=== PATIENT | male | born 1955 | race Caucasian/White ===

== ENCOUNTER 2019-11-28 10:27 | Outpatient (CLI) | payer MEDICARE, SELFPAY ==
--- NOTE | ~2019-11-28 | XR_ITS ---
EXAMINATION: XR hip RT min 2V DATE: 11/28/2019 10:47 INDICATION: Right hip pain TECHNIQUE: Two views of the right hip were obtained. COMPARISON: None. FINDINGS: Bone alignment is normal. There is no fracture. Mild osteoarthritis is present. The soft ti ssues are unremarkable. IMPRESSION: 1. No acute osseous abnormality. Reviewed, dictated and finalized at location A.
--- NOTE | ~2019-11-28 | XR_ITS ---
EXAMINATION: XR wrist RT 2V DATE: 11/28/2019 10:47 INDICATION: Nontraumatic right wrist pain TECHNIQUE: Posteroanterior and lateral views of the right wrist were obtained. COMPARISON: none FINDINGS: Alignment is normal. No fracture. Mild osteoarthritis at the distal radioulnar, triscaphe, first carp ometacarpal and first, second and fifth metacarpophalangeal joints. Soft tissues are unremarkable. IMPRESSION: 1. Mild polyarticular osteoarthritis. Reviewed, dictated and finalized at location A.
== END 2019-11-28 10:28 | disposition home or self-care (01) ==
LOC: ANHIMG 10:32
PROVIDERS: PCP Family Medicine; Visit Provider Family Medicine
DX: M25.559 Pain in unspecified hip (principal); M19.031 Primary osteoarthritis, right wrist
CPT/HCPCS: 73100; 73502

== ENCOUNTER → 2019-12-07 12:23 | Outpatient (CLI) | payer MEDICARE, SELFPAY ==
--- NOTE | ~2019-12-07 | MR_ITS ---
EXAMINATION: MR hip RT wo con DATE: 12/07/2019 13:08 INDICATION: Unspecified right hip pain TECHNIQUE: Magnetic resonance imaging (MRI) of the right hip was performed without intravenous contr ast. Sequences included full-field axial PD-weighted FS FSE and T1-weighted FSE, coronal of the pelvi s with PD-weighted FS FSE, small field of view of the right hip with axial PD-weighted FS FSE, sagit derek PD-weighted FS FSE and coronal PD weighted FS FSE. Additional radial T1-weighted FGR oriented ort hogonal to the acetabular rim were obtained for evaluation of the labrum. COMPARISON: Right hip radiographs dated 11/28/2019 FINDINGS: Bones/labrum/cartilage: Alignment is normal. No fracture, avascular necrosis or pathologic marrow replacing process. Tear of the anterior to superolateral right acetabular labrum. Mild right hip osteoarthritis with nonuniform joint space narrowing with partial thickness cartilage loss most prominent anterosuperiorly and post eriorly. There is subarticular edema along the margin of the posterior articular surface of the femor al head. Fluid: Symmetric physiologic amount of fluid within both hip joints. No bursitis or other abnormal fluid col lections. Soft tissues: Normal and symmetric muscle bulk and signal in the pelvis and visualized proximal thighs. Mild tendin opathy without discrete tear at the posterior aspect of the bilateral gluteus medius medius tendons. The iliopsoas and proximal hamstring tendons are normal. Prostatomegaly measuring 4.9 x 3.5 x 4.5 cm. Limited evaluation of visceral organs of the pelvis is otherwise unremarkable. No pathologically en larged pelvic/inguinal lymphadenopathy. IMPRESSION: 1. 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 Reviewed, dictated and finalized at location A. IMPRESSION: 1. 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
== END ==
PROVIDERS: PCP Family Medicine; Visit Provider Family Medicine
DX: M25.559 Pain in unspecified hip (principal); M16.11 Unilateral primary osteoarthritis, right hip; S73.191A Other sprain of right hip, initial encounter; M94.251 Chondromalacia, right hip
CPT/HCPCS: 73721

== ENCOUNTER 2019-12-14 10:53 | Outpatient (CLI) | payer MEDICARE, SELFPAY ==
[2019-12-14 11:16] LABS: Basophils Percent Auto 0.9 % (0.2-1.2); Eosinophils Percent Auto 0.2 % (0-4.4); Hematocrit 38.5 % (42.0-52.0); Hemoglobin 13.5 g/dL (14.0-18.0); Immature Granulocyte Absolute 0.01 K/mm3 (0.00-0.031); Immature Granulocyte Percent A 0.2 % (0-0.5); Lymphocytes Absolute Auto 0.78 K/mm3 (0.9-3.2); Lymphocytes Percent Auto 17.4 % (18.3-44.2); Mean Corpuscular HGB Conc 35.1 g/dl (32-36); Mean Corpuscular Hemoglobin 31.4 pg (26-34); Mean Corpuscular Volume 89.5 fl (80-100); Mean Platelet Volume 8.5 fl (7.4-10.4); Monocytes Absolute Auto 0.3 K/mm3 (0.1-0.6); Monocytes Percent Auto 6.2 % (2.6-8.5); Neutrophils Absolute Auto 3.4 K/mm3 (1.3-6.7); Neutrophils Percent Auto 75.1 % (45.5-73.1); Platelet Count Result 113 k/mm3 (150-375); Red Cell Distribution Width 13.2 % (11.5-14.5); White Blood Count 4.5 K/mm3 (4.5-10.0)
[2019-12-14 11:44] LABS: Hemoglobin A1C 6.1 % (<5.7)
[2019-12-14 16:41] LABS: Alanine Aminotransferase 20 U/L (4-50); Albumin Level 4.5 g/dL (3.5-5.1); Alkaline Phosphatase 69 U/L (38-126); Aspartate Amino Transferase 22 U/L (17-59); Bilirubin,Total 0.5 mg/dL (0.2-1.3); Blood Urea Nitrogen 17 mg/dL (9-20); Calcium 9.4 mg/dL (8.4-10.2); Carbon Dioxide 27 mmol/L (22-30); Chloride 101 mmol/L (98-107); Cholesterol 103 mg/dL (0-200); Estimated Glomerular Filt Rate > 60; Glucose 270 mg/dL (75-110); HDL Direct 27 mg/dL; Potassium 4.5 mmol/L (3.4-5.0); Sodium 138 mmol/L (137-145); Triglycerides 118 mg/dL (<150)
[2019-12-14 16:42] LABS: Lactate Dehydrogenase 392 U/L (313-618)
[2019-12-14 16:52] LABS: LDL Cholesterol Direct 64 mg/dL
[2019-12-14 16:54] LABS: Free T4 Free Thyroxine 0.98 ng/mL (0.78-2.19)
[2019-12-14 17:09] LABS: Prostate Specific Antigen 3.1 ng/mL (< OR = 4.0)
[2019-12-14 17:47] LABS: Folic Acid 9.3 ng/mL (2.76->20); Vitamin B12 > 1000.0 pg/mL (239-931)
== END 2019-12-14 10:54 | disposition home or self-care (01) ==
PROVIDERS: PCP Family Medicine; Visit Provider Internal Medicine Hematology & Oncology
DX: E11.9 Type 2 diabetes mellitus without complications (principal); G47.33 Obstructive sleep apnea (adult) (pediatric); I10 Essential (primary) hypertension; N20.0 Calculus of kidney; N40.0 Benign prostatic hyperplasia without lower urinary tract symptoms; Z79.899 Other long term (current) drug therapy; Z99.89 Dependence on other enabling machines and devices; D69.59 Other secondary thrombocytopenia; Z12.5 Encounter for screening for malignant neoplasm of prostate
CPT/HCPCS: 36415; 80053; 80061; 82607; 82746; 83036; 83615; 84153; 84439; 84443; 85025; G0103

== ENCOUNTER 2020-08-06 08:44 | Outpatient (CLI) | payer MEDICARE, SELFPAY | END 2020-08-06 08:45 | disposition home or self-care (01) | LOC: ANHCOVIDVC 08:44 | PROVIDERS: PCP Family Medicine | DX: Z23 Encounter for immunization (principal) | CPT/HCPCS: 0001A; 91300 ==

== ENCOUNTER 2020-08-27 08:45 | Outpatient (CLI) | payer MEDICARE, SELFPAY | END 2020-08-27 08:46 | disposition home or self-care (01) | LOC: ANHCOVIDVC 08:45 | PROVIDERS: PCP Family Medicine | DX: Z23 Encounter for immunization (principal) | CPT/HCPCS: 0002A; 91300 ==

== ENCOUNTER 2020-09-18 07:33 | Emergency (ER) | payer MEDICARE, SELFPAY ==
[2020-09-18] VITALS (27 sets, daily range): BP systolic 124–162; BP diastolic 75–96; PULSE 71–81; RESP 10–22; TEMP 36.4; O2SAT 91–100
--- NOTE | ~2020-09-18 | CT_ITS ---
EXAMINATION: CT brain wo con EXAM DATE: 09/18/2020 08:58 INDICATION: Headache and dizziness. TECHNIQUE: Spiral CT of the head was performed without contrast. Axial, coronal and sagittal images were reviewed. The dose-length product (DLP) for this examination was 605.33 mGy-cm. The exposure w as tailored according to patient size, and iterative reconstruction (ASIR) was used as additional dos e reduction technique. There is no prior study for comparison. FINDINGS: There is no acute intraparenchymal hemorrhage. No evidence of intraparenchymal brain mass lesion. No evidence of acute infarction. There is no mass effect or midline shift. The ventricles are normal in size. There are no extra-axial collections. There are no acute calvarial fractures. T he orbits are unremarkable. Soft tissue is unremarkable. The visualized sinuses and mastoid air vicenta ls are well aerated. IMPRESSION: 1. No acute intracranial findings. Reviewed, dictated and finalized at location A.
--- NOTE | ~2020-09-18 | XR_ITS ---
EXAMINATION: XR chest 2V EXAM DATE: 09/18/2020 08:14 INDICATION: Dizziness and chest pain, symptoms 1 day. TECHNIQUE: Frontal and lateral projections of the chest obtained and reviewed. Comparison is made to prior examination from 05/03/2013. FINDINGS: The lungs are clear. There are no pleural effusions. The cardiomediastinal silhouette is within normal limits. There is no pneumothorax suspected. The bones and soft tissues are unremarkab le. IMPRESSION: No acute cardiopulmonary findings. Reviewed, dictated and finalized at location A.
--- NOTE | 2020-09-18 07:42 | ECG_ITS ---
Measurements Intervals [place] Rate: 80 P: 60 ID: [id number] QRS: 19 QRSD: 88 T: 80 QT: 378 QTc: 437 Interpretive Statements SINUS RHYTHM INCOMPLETE RIGHT BUNDLE BRANCH BLOCK BORDERLINE ST ABNORMALITY- ANTEROLAT/HIGH LAT LEADS BASELINE ARTIFACT- III, AVR, AVL, AVF, V1 BORDERLINE ECG Electronically Signed On 09-18-2020 9:10:45 CDT by Gary Lemos D.O.
[2020-09-18 07:53] LABS: Basophils Percent Auto 0.9 % (0.2-1.2); Eosinophils Absolute Auto 0.1 K/mm3 (0-0.3); Eosinophils Percent Auto 1.4 % (0-4.4); Hematocrit 40.4 % (42.0-52.0); Hemoglobin 14.5 g/dL (14.0-18.0); Immature Granulocyte Absolute 0.01 K/mm3 (0.00-0.031); Immature Granulocyte Percent A 0.2 % (0-0.5); Lymphocytes Absolute Auto 0.98 K/mm3 (0.9-3.2); Lymphocytes Percent Auto 22.9 % (18.3-44.2); Mean Corpuscular HGB Conc 35.9 g/dl (32-36); Mean Corpuscular Hemoglobin 32.4 pg (26-34); Mean Corpuscular Volume 90.2 fl (80-100); Mean Platelet Volume 8.7 fl (7.4-10.4); Monocytes Absolute Auto 0.4 K/mm3 (0.1-0.6); Monocytes Percent Auto 8.6 % (2.6-8.5); Neutrophils Absolute Auto 2.8 K/mm3 (1.3-6.7); Platelet Count Result 117 k/mm3 (150-375); Red Blood Count 4.48 M/mm3 (4.6-6.20); Red Cell Distribution Width 13.1 % (11.5-14.5); White Blood Count 4.3 K/mm3 (4.5-10.0)
[2020-09-18 08:03] LABS: INR 0.9; Prothrombin Time 12.3 Seconds (11.1-14.7)
[2020-09-18 08:04] LABS: Partial Thromboplastin Time 26.4 SECONDS (22.3-36.8)
[2020-09-18 08:05] LABS: Anion Gap 10 mmol/L (8-16); Blood Urea Nitrogen 17 mg/dL (9-20); Calcium 9.2 mg/dL (8.4-10.2); Carbon Dioxide 28 mmol/L (22-30); Chloride 103 mmol/L (98-107); Estimated CRCL calculation 82 ml/min; Estimated Glomerular Filt Rate > 60; Glucose 201 mg/dL (75-110); Potassium 3.9 mmol/L (3.4-5.0); Sodium 141 mmol/L (137-145)
[2020-09-18 08:17] LABS: Troponin I < 0.012 ng/mL (0.000-0.034)
--- NOTE | 2020-09-18 08:38 | ED.DIZZY ---
HPI - Dizziness General Chief Complaint: Dizziness Stated Complaint: Dizzy, CP Time Seen by Provider: 09/18/20 07:51 Source: patient and family Mode of arrival: ambulatory Limitations: no limitations History of Present Illness HPI Narrative: Patient 65 years old white male with come this morning with diaphoresis, dizziness, and retrosternal chest pain. Patient reported that he does have retrosternal chest pain almost daily for long time. Today is not different than before. The dizziness is new. Patient denies any aggravating or relieving factors, denies any nausea, vomiting, shortness of breath or any new stress lately. Patient also denies any fever, chills, coughing or respiratory symptoms. Patient used to be on vilazodone which is stopped by the patient few months ago. Currently patient dizziness is 4 out of 10 compared to 10 out of 10 after waking up this morning. Patient denying having similar symptoms. He reports had history of panic attacks. Patient had history of diabetes, hyperlipidemia, sleep apnea on CPAP, no smoking, no drinking or using marijuana. Retired immediately after the beginning of the COVID-19 pandemic Related Data Allergies Allergy/AdvReac Type Severity Reaction Status Date / Time No Known Allergies Allergy Verified 09/18/20 08:06 Review of Systems Review of Systems: Narrative: CONSTITUTIONAL: Denies fever, chills, or sweats. EYES: Denies visual changes, redness, or discharge. ENT: Denies rhinorrhea, congestion, sore throat, or otalgia. CARDIOVASCULAR: Denies chest pain, palpitations, or edema. RESPIRATORY: Denies cough or dyspnea. GASTROINTESTINAL: Denies abdominal pain, nausea, vomiting, or diarrhea. GENITOURINARY: Denies dysuria or hematuria. SKIN: Denies rash or itching. MUSCULOSKELETAL: Denies back pain, joint pain, or myalgia. NEUROLOGIC: Denies headache, numbness, or weakness. PSYCHIATRIC: Denies anxiety or depression. [facility] Past Medical History Medical History Obstructive sleep apnea (adult) (pediatric) Primary osteoarthritis of right hip Surgical History Surgical History Hx of cholecystectomy Family History Family History Grandparent Family history of cardiovascular disease Cerebrovascular accident Father Family history of chronic obstructive pulmonary disease Family history of lung cancer Colon polyp Family history of type 2 diabetes mellitus Mother Family history of type 2 diabetes mellitus, Onset Age: 83 Social History Social History Smoking status: Never smoker Alcohol intake: current Gender identity (if verbalized by the patient): Male Exam Narrative: Exam Narrative: General appearance: Well-developed, well-nourished, at the bedside Skin: Normal color Head: Normocephalic, nontraumatic Eyes: Clear conjunctiva ENT: Oropharynx normal, ears normal, nose normal Neck: Supple, nontender Chest and respiratory: Airway patent, no respiratory distress, no accessory muscle use Heart: Regular rate/rhythm Abdomen: Soft, nontender, no organomegaly, quiet bowel sounds Vascular: Normal peripheral pulses, normal capillary refill. Musculoskeletal: Normal range of motion, nontender back Neurologic: Alert and oriented ?3, N[employer]EL[employer] is normal as tested, no gross motor deficit Course Course Emergency Course: Stable Reevaluation(s) Reevaluation #1: Patient is able to get out of bed and walk around in the emergency room without any complaint. Patient feeling okay to go home. Date: 09/18
[2020-09-18 11:11] LABS: D Dimer 0.27 ug/mL (<0.48)
[2020-09-18 11:22] LABS: Troponin I < 0.012 ng/mL (0.000-0.034)
== END 2020-09-18 11:12 | disposition home or self-care (01) ==
PROVIDERS: Emergency Provider Emergency Medicine; PCP Family Medicine
DX: R42 Dizziness and giddiness (principal); R07.9 Chest pain, unspecified; G89.29 Other chronic pain; M19.90 Unspecified osteoarthritis, unspecified site; G47.30 Sleep apnea, unspecified
CPT/HCPCS: 36415; 70450; 71046; 80048; 84484; 85025; 85380; 85610; 85730; 93005; 99284

== ENCOUNTER 2020-12-13 13:47 | Outpatient (CLI) | payer MEDICARE, SELFPAY ==
[2020-12-13 14:04] LABS: Basophils Percent Auto 0.7 % (0.2-1.2); Eosinophils Percent Auto 0.9 % (0-4.4); Hematocrit 38.4 % (42.0-52.0); Hemoglobin 13.6 g/dL (14.0-18.0); Immature Granulocyte Absolute 0.01 K/mm3 (0.00-0.031); Immature Granulocyte Percent A 0.2 % (0-0.5); Lymphocytes Absolute Auto 1.05 K/mm3 (0.9-3.2); Lymphocytes Percent Auto 23.8 % (18.3-44.2); Mean Corpuscular HGB Conc 35.4 g/dl (32-36); Mean Corpuscular Hemoglobin 32.1 pg (26-34); Mean Corpuscular Volume 90.6 fl (80-100); Mean Platelet Volume 8.2 fl (7.4-10.4); Monocytes Absolute Auto 0.3 K/mm3 (0.1-0.6); Monocytes Percent Auto 7.5 % (2.6-8.5); Neutrophils Percent Auto 66.9 % (45.5-73.1); Platelet Count Result 111 k/mm3 (150-375); Red Blood Count 4.24 M/mm3 (4.6-6.20); Red Cell Distribution Width 13.6 % (11.5-14.5); White Blood Count 4.4 K/mm3 (4.5-10.0)
[2020-12-13 14:09] LABS: Blood Urea Nitrogen 20 mg/dL (8-26); Carbon Dioxide 28 mmol/L (22-30); Chloride 101 mmol/L (98-109); Estimated Glomerular Filt Rate > 60; Glucose 197 mg/dL (70-105); Potassium 3.7 mmol/L (3.5-4.9); Sodium 143 mmol/L (138-146)
[2020-12-13 16:34] LABS: Alanine Aminotransferase 24 U/L (4-50); Albumin Level 4.4 g/dL (3.5-5.1); Alkaline Phosphatase 58 U/L (38-126); Anion Gap 10 mmol/L (8-16); Aspartate Amino Transferase 24 U/L (17-59); Bilirubin,Total 1.1 mg/dL (0.2-1.3); Blood Urea Nitrogen 20 mg/dL (9-20); Calcium 9.6 mg/dL (8.4-10.2); Carbon Dioxide 28 mmol/L (22-30); Chloride 102 mmol/L (98-107); Estimated Glomerular Filt Rate > 60; Glucose 190 mg/dL (75-110); Potassium 3.8 mmol/L (3.4-5.0); Sodium 140 mmol/L (137-145)
== END 2020-12-13 13:48 | disposition home or self-care (01) ==
LOC: ANHLAB 13:49
PROVIDERS: PCP Family Medicine; Visit Provider Internal Medicine Hematology & Oncology
DX: R16.1 Splenomegaly, not elsewhere classified (principal)
CPT/HCPCS: 36415; 80048; 80053; 85025

== ENCOUNTER 2021-10-03 07:01 | Outpatient (CLI) | payer MEDICARE, SELFPAY ==
--- NOTE | ~2021-10-03 | CT_ITS ---
EXAMINATION: CT abdomen pelvis w con DATE: 10/03/2021 07:45 INDICATION: Left lower quadrant abdominal pain. Constipation. TECHNIQUE: Computed tomography (CT) of the abdomen and pelvis was performed with 100 CC Omnipaque 350 intravenous contrast. Automated exposure control and iterative reconstruction technique were employe d. Exam dose: 396.66 mGy-cm total exam DLP. COMPARISON: 12/10/2017 complete abdominal ultrasound FINDINGS: The lung bases are clear of infiltrate or consolidation. Normal heart size. No pericardial or pleural effusion. Status post cholecystectomy. No bile duct dilatation. No hepatic space-occupying mass lesion. Splenom egaly. No splenic mass lesion. No pancreatic mass lesion, calcification or ductal dilatation. Normal morphology of the adrenal glands. 1.7 cm right renal cyst. There are numerous left renal cysts, measuring up to 3.3 cm. There are numerous nonobstructing left renal calculi, measuring up to 7 mm. No ureteral calculus or h ydroureteronephrosis is noted on either side. There is prominent prostate enlargement. The urinary bladder is unremarkable. Normal caliber and minimal atherosclerotic calcification of the abdominal aorta. No intraperitoneal o r retroperitoneal or pelvic mass lesion or adenopathy or ascites. There is a prominent amount fecal material throughout the colon consistent with history of constipati on. No bowel obstruction, bowel wall thickening, pneumatosis or intraperitoneal free air. Normal appe ndix. No suspicious osteolytic or osteoblastic lesions. IMPRESSION: Splenomegaly Prominent amount of fecal material in the colon consistent with constipation Multiple bilateral renal cysts Multiple nonobstructing left renal calculi Reviewed, dictated and finalized at Location A. Reviewed, dictated and finalized at location A.
[2021-10-04 10:15] LABS: Estimated Glomerular Filt Rate > 60
== END 2021-10-03 07:02 | disposition home or self-care (01) ==
PROVIDERS: PCP Family Medicine; Visit Provider Physician Assistant
DX: N28.1 Cyst of kidney, acquired (principal); N20.0 Calculus of kidney; R16.1 Splenomegaly, not elsewhere classified
CPT/HCPCS: 74177; Q9967

== ENCOUNTER 2021-12-16 13:20 | Outpatient (CLI) | payer MEDICARE, SELFPAY ==
[2021-12-16 13:43] LABS: Basophils Percent Auto 0.6 % (0.2-1.2); Eosinophils Percent Auto 0.2 % (0-4.4); Hematocrit 37.6 % (42.0-52.0); Hemoglobin 13.1 g/dL (14.0-18.0); Immature Granulocyte Absolute 0.01 K/mm3 (0.00-0.031); Immature Granulocyte Percent A 0.2 % (0-0.5); Lymphocytes Absolute Auto 1.06 K/mm3 (0.9-3.2); Lymphocytes Percent Auto 20.6 % (18.3-44.2); Mean Corpuscular HGB Conc 34.8 g/dl (32-36); Mean Corpuscular Hemoglobin 32.4 pg (26-34); Mean Corpuscular Volume 93.1 fl (80-100); Mean Platelet Volume 8.8 fl (7.4-10.4); Monocytes Absolute Auto 0.4 K/mm3 (0.1-0.6); Monocytes Percent Auto 7.6 % (2.6-8.5); Neutrophils Absolute Auto 3.7 K/mm3 (1.3-6.7); Neutrophils Percent Auto 70.8 % (45.5-73.1); Platelet Count Result 118 k/mm3 (150-375); Red Blood Count 4.04 M/mm3 (4.6-6.20); Red Cell Distribution Width 13.1 % (11.5-14.5); White Blood Count 5.2 K/mm3 (4.5-10.0)
[2021-12-16 13:47] LABS: Blood Urea Nitrogen 17 mg/dL (8-26); Carbon Dioxide 25 mmol/L (22-30); Chloride 103 mmol/L (98-109); Estimated Glomerular Filt Rate > 60; Glucose 162 mg/dL (70-105); Ionized Calcium (POC) 1.17 mmol/L (1.11-1.31); Sodium 140 mmol/L (138-146)
[2021-12-16 19:28] LABS: Alanine Aminotransferase 24 U/L (6-50); Albumin Level 4.5 g/dL (3.5-5.1); Alkaline Phosphatase 57 U/L (38-126); Anion Gap 9 mmol/L (8-16); Aspartate Amino Transferase 25 U/L (17-59); Bilirubin,Total 0.8 mg/dL (0.2-1.3); Blood Urea Nitrogen 19 mg/dL (9-20); Calcium 9.5 mg/dL (8.4-10.2); Carbon Dioxide 24 mmol/L (22-30); Chloride 105 mmol/L (98-107); Estimated Glomerular Filt Rate > 60; Glucose 157 mg/dL (65-110); Potassium 4.1 mmol/L (3.4-5.0); Sodium 138 mmol/L (137-145)
== END 2021-12-16 13:21 | disposition home or self-care (01) ==
LOC: ANHLAB 13:21
PROVIDERS: PCP Family Medicine; Visit Provider Internal Medicine Hematology & Oncology
DX: R16.1 Splenomegaly, not elsewhere classified (principal)
CPT/HCPCS: 36415; 80047; 80053; 85025

== ENCOUNTER 2022-04-24 12:18 | Outpatient (CLI) | payer MEDICARE, SELFPAY ==
--- NOTE | ~2022-04-24 | CT_ITS ---
EXAMINATION: CT abdomen pelvis w con DATE: 04/24/2022 12:46 INDICATION: Abdominal pain. TECHNIQUE: Computed tomography (CT) of the abdomen and pelvis was performed with 100 mL Omnipaque 350 intravenous contrast. Automated exposure control and iterative reconstruction technique were employe d. The dose-length product was 364.89 mGy-cm. COMPARISON: CT abdomen and pelvis 10/03/2021 FINDINGS: The visualized portions of the lung bases demonstrate mild atelectasis. No pleural effusion . The heart size is normal. No pericardial effusion. There is a small sliding hiatal hernia. The live r is normal. There are changes of cholecystectomy. Calcifications in the spleen are consistent with o ld granulomatous disease. There is mild splenomegaly. The pancreas and adrenal glands are normal. The re are cysts in the kidneys measuring up to 3.3 cm on the left. There is a cluster of at least 6 ston es in left kidney measuring up to 8 mm. The prostate is moderately enlarged. There are no dilated loo ps of bowel. The appendix is normal. There are no pathologically enlarged lymph nodes. There is no fr ee intraperitoneal fluid. There is mild thoracolumbar spondylosis. IMPRESSION: 1. Nonobstructing left kidney stones. 2. Chronic mild splenomegaly. 3. Small sliding hiatal hernia. Reviewed, dictated and finalized at location A. ENGER RELATIONS REPRESENTATIVE
[2022-04-24 12:40] LABS: Estimated Glomerular Filt Rate > 60
== END 2022-04-24 12:19 | disposition home or self-care (01) ==
PROVIDERS: PCP Family Medicine; Visit Provider Physician Assistant
DX: R10.9 Unspecified abdominal pain (principal); K44.9 Diaphragmatic hernia without obstruction or gangrene; N20.0 Calculus of kidney; R16.1 Splenomegaly, not elsewhere classified
CPT/HCPCS: 74177; Q9967

== ENCOUNTER 2022-12-16 12:13 | Outpatient (CLI) | payer MEDICARE, SELFPAY ==
[2022-12-16 12:38] LABS: Basophils Percent Auto 0.7 % (0.2-1.2); Eosinophils Percent Auto 0.2 % (0-4.4); Hemoglobin 13.8 g/dL (14.0-18.0); Immature Granulocyte Absolute 0.01 K/mm3 (0.00-0.031); Immature Granulocyte Percent A 0.2 % (0-0.5); Lymphocytes Absolute Auto 0.92 K/mm3 (0.9-3.2); Lymphocytes Percent Auto 21.3 % (18.3-44.2); Mean Corpuscular HGB Conc 36.3 g/dl (32-36); Mean Corpuscular Hemoglobin 33.1 pg (26-34); Mean Corpuscular Volume 91.1 fl (80-100); Mean Platelet Volume 8.5 fl (7.4-10.4); Monocytes Absolute Auto 0.4 K/mm3 (0.1-0.6); Monocytes Percent Auto 8.8 % (2.6-8.5); Neutrophils Percent Auto 68.8 % (45.5-73.1); Platelet Count Result 116 k/mm3 (150-375); Red Blood Count 4.17 M/mm3 (4.6-6.20); Red Cell Distribution Width 12.9 % (11.5-14.5); White Blood Count 4.3 K/mm3 (4.5-10.0)
[2022-12-16 13:29] LABS: Alanine Aminotransferase 27 U/L (6-50); Albumin Level 4.9 g/dL (3.5-5.1); Alkaline Phosphatase 64 U/L (38-126); Anion Gap 6 mmol/L (8-16); Aspartate Amino Transferase 29 U/L (17-59); Bilirubin,Total 1.3 mg/dL (0.2-1.3); Blood Urea Nitrogen 18 mg/dL (9-20); Calcium 9.8 mg/dL (8.4-10.2); Carbon Dioxide 32 mmol/L (22-30); Chloride 102 mmol/L (98-107); Estimated Glomerular Filt Rate > 60; Glucose 137 mg/dL (65-110); Potassium 4.1 mmol/L (3.4-5.0); Sodium 140 mmol/L (137-145)
[2022-12-16 13:59] LABS: Prostate Specific Antigen 2.9 ng/mL (< OR = 4.0)
== END 2022-12-16 12:14 | disposition home or self-care (01) ==
LOC: ANHLAB 12:15
PROVIDERS: Family Medicine; PCP Emergency Medicine; Visit Provider Internal Medicine Hematology & Oncology
DX: R16.1 Splenomegaly, not elsewhere classified (principal); Z12.5 Encounter for screening for malignant neoplasm of prostate
CPT/HCPCS: 36415; 80053; 84153; 85025; G0103

== ENCOUNTER 2023-05-11 01:37 | Day surgery (SDC) | payer MEDICARE, SELFPAY ==
[2023-04-28 13:50] VITALS: BMI 23.3
--- NOTE | 2023-05-08 09:31 | SUR.PREOP ---
Patient called regarding upcoming procedure. Message left on patient's voicemail regarding preop instructions, appointment times, and procedure prep.
--- NOTE | 2023-05-08 15:09 | PM.HPGS ---
History of Present Illness History of Present Illness Consent: Risks, benefits, and alternatives have been discussed and questions answered. Patient agrees to proceed with procedure. Chief complaint: history of colon polyps Narrative: Deo Starr is a 68 year old male Who was referred for colon cancer screening. He had a tubular adenoma removed 5 years ago. 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 Surgical History Surgical History Hx of cholecystectomy Family History Family History Grandparent Family history of cardiovascular disease Cerebrovascular accident Father Family history of chronic obstructive pulmonary disease Family history of lung cancer Colon polyp Family history of type 2 diabetes mellitus Mother Family history of type 2 diabetes mellitus, Onset Age: 83 Social History Social History Smoking status: Never smoker Alcohol intake: current Alcohol use details: occasionally Substance use: never Substance use type: does not use Lack of Transportation: No Lack of Food: Never True Current Housing: I Have Housing Concerned About Future Housing: No Difficulty Paying Gas/Electric Bills: No Difficulty Paying for Meds: No Currently Unemployed: No Education: Bachelor's Degree Difficulty w/ Childcare or Family Care: No Gender identity (if verbalized by the patient): Male Meds Home Medications and Allergies Home Medications Medication Instructions Recorded Confirmed Type multivitamin (One-A-Day Essential 1 tablet PO DAILY 10/02/20 05/11/23 History tablet) cyanocobalamin (vitamin B-12) 250 250 mcg PO DAILY 04/16/22 05/11/23 History mcg tablet (Vitamin B-12) sildenafil (pulm.hypertension) 20 See Rx Instructions .Route 06/10/22 05/11/23 Rx mg tablet .COMPLEX #30 tabs vilazodone 20 mg tablet (Viibryd) See Rx Instructions .Route 06/10/22 05/11/23 Rx .COMPLEX #90 tabs metformin 500 mg tablet,extended See Rx Instructions .Route 03/02/23 05/11/23 Rx release 24 hr .COMPLEX #180 tabs atorvastatin 20 mg tablet See Rx Instructions .Route 04/06/23 05/11/23 Rx .COMPLEX #90 tabs Allergies Allergy/AdvReac Type Severity Reaction Status Date / Time No Known Allergies Allergy Verified 05/11/23 13:17 Exam Resp: Auscultation: clear to auscultation bilaterally Cardio: Rate: regular rate Rhythm: regular rhythm GI: GI Palp: Yes Soft to palpation and No Tenderness to palpation present (GI) Assessment and Plan Assessment and plan (1) History of adenomatous polyp of colon: Code(s): Z86.010 - Personal history of colonic polyps Status: Acute Assessment and Plan: Colonoscopy with possible biopsy or polypectomy or cautery or injection of substances.
[2023-05-11 13:10] VITALS: BP 157/88; PULSE 65; RESP 18; TEMP 36; O2SAT 100; BMI 22.6
[2023-05-11] MEDS: LACTATED RINGERS 1,000 ML 150 ML IV CONT (13:30)
[2023-05-11 13:32] LABS: Glucose Point of Care 130 mg/dl (65-105)
--- NOTE | 2023-05-11 13:41 | WPDANESEPPF ---
Anes - Initial Pre Proc Eval Procedure: Operation Date: 05/11/23 14:30 Proposed Procedures p Colonoscopy - Mitch Valentin MD Date/Time: 05/11/23 13:41 Surgeon: Mitch Valentin MD Pre Op Diagnosis: history of colon polyps Patient Data Age: 68 Gender: M Height: 1.78 m Weight: 71.5 kg Last Vital Signs Temp 96.8 F L 05/11/23 13:10 Pulse 65 05/11/23 13:10 Resp 18 05/11/23 13:10 BP 157/88 H 05/11/23 13:10 Pulse Ox 100 05/11/23 13:10 O2 Del Method Room Air 05/11/23 13:10 Allergies Allergy/AdvReac Type Severity Reaction Status Date / Time No Known Allergies Allergy Verified 05/11/23 13:17 Home Medications Medication Instructions Recorded Confirmed Type multivitamin (One-A-Day Essential 1 tablet PO DAILY 10/02/20 05/11/23 History tablet) cyanocobalamin (vitamin B-12) 250 250 mcg PO DAILY 04/16/22 05/11/23 History mcg tablet (Vitamin B-12) sildenafil (pulm.hypertension) 20 See Rx Instructions .Route 06/10/22 05/11/23 Rx mg tablet .COMPLEX #30 tabs vilazodone 20 mg tablet (Viibryd) See Rx Instructions .Route 06/10/22 05/11/23 Rx .COMPLEX #90 tabs metformin 500 mg tablet,extended See Rx Instructions .Route 03/02/23 05/11/23 Rx release 24 hr .COMPLEX #180 tabs atorvastatin 20 mg tablet See Rx Instructions .Route 04/06/23 05/11/23 Rx .COMPLEX #90 tabs Laboratory Tests 05/11/23 13:25 POC Capillary Glucose 130 H mg/dl (65-105) Patient hx anesthesia problems: none Family hx anesthesia problems: none Results Review: All pre-operative results and documents have been reviewed as part of the pre-operative evaluation. 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 Surgical History Surgical History Hx of cholecystectomy Family History Family History Grandparent Family history of cardiovascular disease Cerebrovascular accident Father Family history of chronic obstructive pulmonary disease Family history of lung cancer Colon polyp Family history of type 2 diabetes mellitus Mother Family history of type 2 diabetes mellitus, Onset Age: 83 Social History Social History (Updated 04/16/23 @ 09:02 by Leonor Abraham MA) Smoking status: Never smoker Alcohol intake: current Alcohol use details: occasionally Substance use: never Substance use type: does not use Lack of Transportation: No Lack of Food: Never True Current Housing: I Have Housing Concerned About Future Housing: No Difficulty Paying Gas/Electric Bills: No Difficulty Paying for Meds: No Currently Unemployed: No Education: Bachelor's Degree Difficulty w/ Childcare or Family Care: No Gender identity (if verbalized by the patient): Male Anes - Eval Final PreProcedure Day of Procedure 05/11/23 13:41 Patient weight: normal Heart: regular rate and rhythm Lungs: clear to auscultation Airway: Mallampati scale class II Neurological: alert and oriented Last oral intake: >/= 8 hours ASA classification: II Emergent: no Anesthetic plan: proceed Anesthesia type and monitoring: general GIVS and standard monitoring Results Review: All pre-operative results and documents have been reviewed as part of the pre-operative evaluation. Informed Consent: The patient's anesthetic plan and its attendant risks and benefits were discussed with the patient/family/POA. Questions were solicited and answers provided to the satisfa
[2023-05-11 14:18] VITALS: BP 99/63; PULSE 64; RESP 13; O2SAT 98
[2023-05-11 14:28] VITALS: BP 117/76; PULSE 67; RESP 22; O2SAT 99
[2023-05-11 14:38] VITALS: BP 125/83; PULSE 60; RESP 13; O2SAT 100
== END 2023-05-11 14:45 | disposition home or self-care (01) ==
PROVIDERS: PCP Emergency Medicine; Visit Provider Internal Medicine Gastroenterology
PROC: 0DJD8ZZ Inspection of Lower Intestinal Tract, Via Natural or Artificial Opening Endoscopic (ICD-10-PCS; CPT 45378; principal; 2023-05-11 14:30)
DX: Z12.11 Encounter for screening for malignant neoplasm of colon (principal); D12.4 Benign neoplasm of descending colon; D12.3 Benign neoplasm of transverse colon; K64.8 Other hemorrhoids; F41.9 Anxiety disorder, unspecified; E78.6 Lipoprotein deficiency; G47.33 Obstructive sleep apnea (adult) (pediatric); M16.11 Unilateral primary osteoarthritis, right hip; D53.9 Nutritional anemia, unspecified; Z79.84 Long term (current) use of oral hypoglycemic drugs; Z90.49 Acquired absence of other specified parts of digestive tract; Z82.49 Family history of ischemic heart disease and other diseases of the circulatory system; Z80.1 Family history of malignant neoplasm of trachea, bronchus and lung
CPT/HCPCS: 45385; 82948; 88305; J2704; J7120

== ENCOUNTER 2023-11-30 09:07 | Outpatient (CLI) | payer MEDICARE, SELFPAY ==
--- NOTE | ~2023-11-30 | NM_ITS ---
EXAMINATION: NM shirley stress w perfusion DATE: 11/30/2023 11:15 INDICATION: Chest pain. Abnormal electrocardiogram. TECHNIQUE: Rest images were obtained following intravenous administration of 11.22 mCi Tc99m tetrofos min (Myoview). The patient was infused intravenously with Lexiscan (regadenoson). Then, 35 mCi Tc99m tetrofosmin (Myoview) was administered intravenously, and stress images were obtained. Data was recon structed into short axis and horizontal and vertical long axis SPECT images. Gated SPECT images were also obtained. COMPARISON: Myocardial perfusion imaging 05/03/2013 FINDINGS: There is no definite reversible or fixed perfusion abnormality to suggest ischemia or infar ction. There is no segmental wall motion abnormality. Left ventricular ejection fraction measures 5 9%. IMPRESSION: 1. No definite ischemia or infarct. 2. Normal left ventricular ejection fraction measuring 59%. Reviewed, dictated and finalized at location A.
--- NOTE | 2023-11-30 09:28 | EST_ITS ---
Patient Info Name: Deo Starr Age: 68 years : 1955 Gender: Male Ht: 70 in Wt: 163 lbs BSA: 1.91 m2 HR: 62 bpm BP: 156 / 97 mmHg Exam Date: 11/30/2023 10:23 AM Exam Location: Echo Lab Patient Status: Outpatient Admit Date: 11/30/2023 Staff Ordering Physician: César Bauman MD Attending Provider: César Bauman MD Exercise Technologist: Cierra Araujo [facility] Exercise Physician: Gary Lemos DO Exam Type: CA stress shirley w NM Study Info A regadenoson stress test was performed. Summary 1. 1. Negative lexiscan stress test for ischemic ST changes by ECG criteria. 2. 2. Baseline hypertension. 3. 3. Nuclear scan to follow and will be reported separately. Please correlate with it. 4. 4. Patient informed of the above results. Protocol: Lexiscan Stress ECG Details Stage: REST Duration (min): 1 min : 51 sec HR (bpm): 64 SBP (mmHg): 156 DBP (mmHg): 97 Stage: REST Duration (min): 9 min : 31 sec HR (bpm): 64 SBP (mmHg): 156 DBP (mmHg): 97 Stage: STAGE 1 Duration (min): 0 min : 59 sec HR (bpm): 85 SBP (mmHg): 156 DBP (mmHg): 81 Stage: RECOVERY Duration (min): 1 min : 0 sec HR (bpm): 92 SBP (mmHg): 156 DBP (mmHg): 81 Stage: RECOVERY Duration (min): 2 min : 0 sec HR (bpm): 92 SBP (mmHg): 156 DBP (mmHg): 81 Stage: RECOVERY Duration (min): 3 min : 0 sec HR (bpm): 90 SBP (mmHg): 156 DBP (mmHg): 77 Stage: RECOVERY Duration (min): 3 min : 11 sec HR (bpm): 88 SBP (mmHg): 156 DBP (mmHg): 77 Rest HR: 64 bpm Peak HR: 94 bpm Rest Sys BP: 156 mmHg Peak Sys BP: 156 mmHg Max Pred HR: 151 bpm % Max Pred HR: 62 % Target HR: 128 bpm Max RPP: 14,664 bpm*mmHg Termination Reason: Completed protocol Cardiac Symptoms: Shortness of breath Total Time: 1 min : 0 sec Rest [place] BP: 97 mmHg Peak [place] BP: 81 mmHg Total Dose: 0.4 mg Resting ECG Sinus rhythm, borderline T wave abnormality in diffuse leads. Stress ECG No ST changes. Arrhythmias None. Report Signatures
== END 2023-11-30 09:08 | disposition home or self-care (01) ==
PROVIDERS: PCP Emergency Medicine; Visit Provider Emergency Medicine
DX: R07.9 Chest pain, unspecified (principal); R94.31 Abnormal electrocardiogram [ECG] [EKG]
CPT/HCPCS: 78452; 93017; A9502; J2785

== ENCOUNTER 2023-12-28 13:12 | Outpatient (CLI) | payer MEDICARE, SELFPAY ==
[2023-12-28 13:33] LABS: Basophils Percent Auto 0.7 % (0.2-1.2); Eosinophils Percent Auto 0.2 % (0-4.4); Hematocrit 37.2 % (42.0-52.0); Hemoglobin 13.1 g/dL (14.0-18.0); Immature Granulocyte Absolute 0.01 K/mm3 (0.00-0.031); Immature Granulocyte Percent A 0.2 % (0-0.5); Lymphocytes Percent Auto 20.3 % (18.3-44.2); Mean Corpuscular HGB Conc 35.2 g/dl (32-36); Mean Corpuscular Hemoglobin 32.7 pg (26-34); Mean Corpuscular Volume 92.8 fl (80-100); Mean Platelet Volume 8.3 fl (7.4-10.4); Monocytes Absolute Auto 0.3 K/mm3 (0.1-0.6); Monocytes Percent Auto 7.2 % (2.6-8.5); Neutrophils Absolute Auto 3.2 K/mm3 (1.3-6.7); Neutrophils Percent Auto 71.4 % (45.5-73.1); Platelet Count Result 107 k/mm3 (150-375); Red Blood Count 4.01 M/mm3 (4.6-6.20); Red Cell Distribution Width 12.9 % (11.5-14.5); White Blood Count 4.4 K/mm3 (4.5-10.0)
[2023-12-28 17:11] LABS: Alanine Aminotransferase 29 U/L (6-50); Albumin Level 4.6 g/dL (3.5-5.1); Alkaline Phosphatase 57 U/L (38-126); Anion Gap 11 mmol/L (4-12); Aspartate Amino Transferase 27 U/L (17-59); Bilirubin,Total 0.9 mg/dL (0.2-1.3); Blood Urea Nitrogen 20 mg/dL (9-20); Calcium 9.5 mg/dL (8.4-10.2); Carbon Dioxide 28 mmol/L (22-30); Chloride 100 mmol/L (98-107); Estimated Glomerular Filt Rate > 60; Glucose 175 mg/dL (65-110); Sodium 139 mmol/L (137-145)
[2023-12-28 17:35] LABS: Prostate Specific Antigen 2.8 ng/mL (< OR = 4.0)
== END 2023-12-28 13:13 | disposition home or self-care (01) ==
LOC: ANHLAB 13:14
PROVIDERS: PCP Emergency Medicine; Visit Provider Internal Medicine Hematology & Oncology
DX: Z12.5 Encounter for screening for malignant neoplasm of prostate (principal); R16.1 Splenomegaly, not elsewhere classified; R59.1 Generalized enlarged lymph nodes
CPT/HCPCS: 36415; 80053; 84153; 85025; G0103

== ENCOUNTER 2024-10-03 14:59 | Emergency (ER) | payer MEDICARE, SELFPAY ==
--- NOTE | ~2024-10-03 | XR_ITS ---
EXAMINATION: XR chest 2V Exam Date/Time: 10/03/2024 15:39 CDT HISTORY: cough, fever non smoker Comparison: 09/18/2020. RESULT: Lines, tubes, and devices: None. Lungs and pleura: Clear. Cardiomediastinal silhouette: Stable. Other: No acute osseous or upper abdominal finding. IMPRESSION: No acute cardiopulmonary process. Reviewed, dictated and finalized at location K.
[2024-10-03 15:16] VITALS: BP 158/88; PULSE 78; RESP 16; TEMP 36.4; O2SAT 97
--- NOTE | 2024-10-03 15:25 | ED_ITS ---
HPI - URI/Sore Throat General Chief Complaint: Upper Respiratory Infection Stated Complaint: Trouble Breathing Source: patient and RN notes reviewed Mode of arrival: ambulatory Limitations: no limitations History of Present Illness HPI Narrative: Patient is a 69-year-old male who presents to the [facility] with complaints shortness of breath and cough that has been present since last week. Patient reports a frequent nonproductive cough. He states that he feels burning in his lungs at times. he denies chest pain. His respirations are unlabored. He states that he did have sweats/ chills last night but unsure of known fever. Related Data Home Medications ?Medication ?Instructions ?Recorded ?Confirmed ?Last Taken ?Type multivitamin (One-A-Day Essential 1 tablet PO DAILY 10/02/20 05/27/24 Unknown History tablet) cyanocobalamin (vitamin B-12) 250 250 mcg PO DAILY 04/16/22 10/03/24 05/11/23 History mcg tablet (Vitamin B-12) Allergies Allergy/AdvReac Type Severity Reaction Status Date / Time No Known Allergies Allergy Verified 10/03/24 15:15 Review of Systems Review of Systems: CONSTITUTIONAL: Denies fever, but reports chills and sweats. EYES: Denies visual changes, redness, or discharge. ENT: Denies otalgia and sore throat CARDIOVASCULAR: Denies chest pain, palpitations, or edema. RESPIRATORY: Reports cough and dyspnea. GASTROINTESTINAL: Denies abdominal pain, nausea, vomiting, or diarrhea. GENITOURINARY: Denies dysuria or hematuria. SKIN: Denies rash or itching. MUSCULOSKELETAL: Denies back pain, joint pain, or myalgia. NEUROLOGIC: Denies headache, numbness, or weakness. Pertinent positives per HPI. 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 Sprain and strain of other specified sites of hip and thigh Unspecified deficiency anemia Snoring Lipoprotein deficiency Episodic tension-type headache, not intractable Anxiety disorder, unspecified Prostatitis Primary osteoarthritis of right hip Obstructive sleep apnea (adult) (pediatric) Surgical History Surgical History Hx of cholecystectomy Family History Family History Grandparent Family history of cardiovascular disease Cerebrovascular accident Father Family history of chronic obstructive pulmonary disease Family history of lung cancer Colon polyp Family history of type 2 diabetes mellitus Mother Family history of type 2 diabetes mellitus, Onset Age: 83 Social History Social History Smoking status: Never smoker Alcohol intake: current Alcohol use details: occasionally Substance use: never Substance use type: does not use Do You Feel Safe in your Home?: Yes Lack of Transportation: No Lack of Food: Never True Current Housing: I Have Housing Concerned About Future Housing: No Difficulty Paying Gas/Electric Bills: No Difficulty Paying for Meds: No Currently Unemployed: No Education: Bachelor's Degree Difficulty w/ Childcare or Family Care: No Gender identity (if verbalized by the patient): Male Comments At the time of my signature, I reviewed and agree with the nursing past medical, surgical, social, and family history. There is no relevant family history pertinent to the patient complaint. Exam Narrative: GENERAL: This is a well-nourished, well-developed patient, in no apparent distress. HEAD: normocephalic, atraumatic. EYES: Sclera clear/white. Vision is grossly intact. EARS: External ears normal. Hearing grossly intact. NOSE: External nose normal with no obvious nasal discharge, nares without redness, no rhinorrhea. THROAT: Mucous membranes moist, posterior pharynx clear. NECK: Neck supple, non-tender without lymphadenopathy, masses or thyromegaly. CARDIOVASCULAR: Regular rate and rhythm without murmurs, gallops, or rubs. RESPIRATORY: Clear to auscultation. Breath sounds equal bilaterally. No wheezes, rales, or rhonchi. GASTROINTESTINAL: Abdomen soft, non-tender, nondistended. Bowel sounds are active. No hepato-splenomegaly, or palpable masses. No guarding. SKIN: warm, intact with no suspicious lesions or rash, good texture and turgor. NEURO: awake, alert, and oriented to person, place and time. There were no obvious focal neurologic abnormalities. Course Course Level of Care: Express Care Visit Vital Signs Vital signs: Vital Signs Temperature 97.6 F 10/03/24 15:16 Pulse Rate 78 10/03/24 15:16 Respiratory Rate 16 10/03/24 15:16 Blood Pressure 158/88 H 10/03/24 15:16 Pulse Oximetry 97 10/03/24 15:16 Oxygen Delivery Room Air 10/03/24 15:16 Temperature 97.6 F 10/03/24 15:16 Pulse Rate 78 10/03/24 15:16 Respiratory Rate 16 10/03/24 15:16 Blood Pressure 158/88 H 10/03/24 15:16 Pulse Oximetry 97 10/03/24 15:16 Oxygen Delivery Room Air 10/03/24 15:16 Reviewed MDM - URI/Sore Throat MDM Narrative Medical decision making narrative: Take steroids as directed. May use the inhaler every 4-6 hours as needed for coughing. Increase fluids at home. Avoid any and all smoke. May use a humidifier in the bedroom. Increase your Vitamin C. Follow-up with personal physician in 2-5 days. Differential Diagnosis Differential diagnosis: Likely upper respiratory infection, viral infection, bronchitis, influenza and other (covid, pneumonia) Lab Data Attestation: I reviewed the patient's lab results. Labs: Lab Results 10/03/24 Range/Units 15:27 POC Influenza A Ag Negative (Negative) POC Influenza B Ag Negative (Negative) POC SARS CoV-2 Ag Negative (Negative) Imaging Data Attestation: I personally reviewed and interpreted this imaging study as follows: Radiologist's impression: Close Chest X-Ray (Signed) Pal Méndez - 10/03/24 Launch?[facility] [address] [address] XRay Report Signed Patient: Deo Starr : 1955 MR#: [id number] Age: 69 Acct:[id number] Loc: [facility] ADM Date: 10/03/24Attending Dr: Ordering Physician: Tuyet Lizama APRN Date of Service: 10/03/24 Procedure(s): XR chest 2V Accession Number(s): [id number] cc: Tuyet Lizama APRN; Italia Thomas APRN~ EXAMINATION: XR chest 2V Exam Date/Time: 10/03/2024 15:39 CDT HISTORY: cough, fever non smoker Comparison: 09/18/2020. RESULT: Lines, tubes, and devices: None. Lungs and pleura: Clear. Cardiomediastinal silhouette: Stable. Other: No acute osseous or upper abdominal finding. IMPRESSION: No acute cardiopulmonary process. Reviewed, dictated and finalized at location K. Please be advised this is a medical document. It is intended for [id number] communication. It is written in medical language and may contain unfamiliar abbreviations or verbiage. Medical documents are intended to carry relevant information, facts as evident, and the clinical opinion of the practitioner at the time of the encounter. This report may have been done utilizing a voice recognition system. Attempts have been made to correct errors. However, there may be uncorrected grammatical, spelling, and recognition errors present. The file time of this note does not necessarily represent the time of service. Dictated By: Pal Méndez MD 10/03/24 1553 Signed By: <Electronically signed by Pal Méndez MD in OV> 10/03/24 1553 Critical Care Time Critical Care Time Critical Care Time: No Discharge Plan Discharge Clinical Impression: Acute bronchitis Qualifiers: Bronchitis organism: unspecified organism Qualified Code(s): J20.9 - Acute bronchitis, unspecified Patient Disposition: Home Condition: Stable Instructions: Acute Bronchitis (ED) Additional Instructions: Take steroids as directed. May use the inhaler every 4-6 hours as needed for coughing. Increase fluids at home. Avoid any and all smoke. May use a humidifier in the bedroom. Increase your Vitamin C. Follow-up with personal physician in 2-5 days. Patient Language: Khmer Prescriptions: New prednisone 50 mg tablet 50 mg PO DAILY 5 Days Qty: 5 0RF albuterol sulfate [Ventolin HFA] 90 mcg/actuation HFA aerosol inhaler 2 puff inhalation QID PRN (Reason: shortness of breath or wheezing) Qty: 6.7 0RF No Action multivitamin [One-A-Day Essential] Tablet 1 tablet PO DAILY cyanocobalamin (vitamin B-12) [Vitamin B-12] 250 mcg tablet 250 mcg PO DAILY sildenafil (pulm.hypertension) 20 mg tablet See Rx Instructions .ROUTE .COMPLEX Qty: 30 6RF Dose Instruction: TAKE 2 OR 3 TABLETS BY MOUTH NEEDED FOR ERECTION. Rx Instructions: TAKE 2 OR 3 TABLETS BY MOUTH NEEDED FOR ERECTION. atorvastatin 20 mg tablet See Rx Instructions .ROUTE .COMPLEX Qty: 100 1RF Dose Instruction: TAKE 1 TABLET BY MOUTH DAILY Rx Instructions: TAKE 1 TABLET BY MOUTH DAILY metformin 500 mg tablet extended release 24 hr See Rx Instructions .ROUTE .COMPLEX Qty: 200 1RF Dose Instruction: TAKE 1 TABLET BY MOUTH TWICE DAILY Rx Instructions: TAKE 1 TABLET BY MOUTH TWICE DAILY Viibryd 20 mg tablet See Rx Instructions .ROUTE .COMPLEX Qty: 90 1RF Dose Instruction: TAKE 1 TABLET BY MOUTH DAILY MUST ADMINISTER WITH A MEAL/FOOD Rx Instructions: TAKE 1 TABLET BY MOUTH DAILY MUST ADMINISTER WITH A MEAL/FOOD Follow-up/Referrals: Italia Thomas, CERTIFIED MASTER SAFE TECHNICIAN-C [Primary Care Provider] - Time of Disposition: 15:59
[2024-10-03 15:29] LABS: EDCOVIDSCREEN Negative (Negative); EDINFLUASCREEN Negative (Negative); EDINFLUBSCREEN Negative (Negative)
== END 2024-10-03 16:03 | disposition home or self-care (01) ==
PROVIDERS: Emergency Provider Nurse Practitioner; PCP Clinical Nurse Specialist
DX: J20.9 Acute bronchitis, unspecified (principal); Z20.822 Contact with and (suspected) exposure to COVID-19; M16.11 Unilateral primary osteoarthritis, right hip
CPT/HCPCS: 71046; 87426; 87804; 99213; G0463

== ENCOUNTER 2024-11-24 09:44 | Outpatient (CLI) | payer MEDICARE, SELFPAY ==
--- OUTSIDE RECORDS SUMMARY | 2024-11-24 10:12 | XMS_ITS | Clinical Summary ---
Author Organization [facility] Address [address] [place] [address] Care Team Providers Care Boatbuilder Supervisor Name Role Phone César Bauman MD Primary Care Provider [phone] Allergies No known active allergies Medications metFORMIN (GLUCOPHAGE XR) 500 mg Extended Release 24 hour tablet Take 500 mg by mouth 2 times daily . 11/03/2017 Active atorvastatin (LIPITOR) 20 mg tablet Take 20 mg by mouth daily . 11/23/2017 Active VIIBRYD 20 mg Tablet Take 20 mg by mouth daily . 11/17/2017 Active cyanocobalamin (VITAMIN B-12) 500 mcg tablet Take 500 mcg by mouth daily. Active sildenafil, pulm.hypertensi on, (REVATIO) 20 mg Tablet TAKE 2-3 TABLETS BY MOUTH NEEDED FOR ERECTION. 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 Encounters Date Type Department Care Team Description 11/08/2024 External Device Data [facility] Provider, Abstract 10/26/2024 External Device Data [facility] Provider, Abstract 10/25/2024 External Device Data [facility] Provider, Abstract from Last 3 Months Family History Medical History Relation Name Comments Diabetes Father High Cholesterol Father Lung Cancer Father Heart Disease Maternal Grandfather Heart Disease Maternal Grandmother Diabetes Mother Anemia Paternal Grandfather Relation Name Status Comments Father Maternal Grandfather Maternal Grandmother Mother Paternal Grandfather Social History Tobacco Use Types Packs/Day Years Used Date Smoking Tobacco: Never Smokeless Tobacco: Never Tobacco Cessation:Counseling Given: Not Answered Sex and Gender Information Value Date Recorded Sex Assigned at Not on file Legal Sex Male 8:27 AM CDT Gender Identity Not on file Sexual Orientation Not on file Last Filed Vital Signs Vital Sign Reading Time Taken Comments Blood Pressure 131/79 12/30/2023 3:22 PM CDT Pulse 71 12/30/2023 3:22 PM CDT Temperature 36.8 C (98.2 F) 12/30/2023 3:20 PM CDT Respiratory Rate 18 12/30/2023 3:20 PM CDT Oxygen Saturation 96% 12/30/2023 3:20 PM CDT Inhaled Oxygen Concentration - - Weight 71.2 kg (157 lb) 12/30/2023 3:20 PM CDT Height 177.8 cm (5' 10) 12/16/2022 1:01 PM CDT Body Mass Index 22.53 12/16/2022 1:01 PM CDT Plan of Treatment Upcoming Encounters Date Type Department Care Team (Late st Contact Info) Description 01/02/2025 2:15 PM CDT Office Visit [facility]ology - [place] [address] [facility] [address] [place] [address] Zohaib Burton MD [address] [facility] [address] [place] [address] Health Maintenance Due Date Last Done Comments DIABETES ANNUAL FOOT EXAM 1972 DIABETES ANNUAL RETINAL EXAM 1972 DIABETES HBA1C Q 6 MONTHS 1972 DIABETES MICROALBUMIN ANNUAL SCREEN 1972 LDL CHOLESTEROL ANNUAL 1972 DTAP/TDAP/TD VACCINES (1 - Tdap) 1973 PNEUMOCOCCAL VACCINE 50+ YEARS (1 of 2 - PCV) 03/10/19 73 COLORECTAL SCREENING 1999 FIT-DNA Q 3 years 1999 Flex Sig/CT Colonography Q 5 years 1999 ZOSTER VACCINE (1 of 2) 2004 Colorectal Cancer Screening 03/25/2019 FIT/FOBT Q 1 year 03/25/2019 03/25/2018 INFLUENZA VACCINE (#1) 2024 RSV VACCINE (60+ or ) (1 - 1-dose 75+ series) 2029 Procedures Procedure Name Priority Date/Time Associated Diagnosis Comments POC OCCULT BLOOD 1 CARD Routine 03/25/2018 Other specified anemias from Last 3 Months or Most Recently Relevant to Health Maintenance Results * POC OCCULT BLOOD 1 CARD (03/25/2018) Stool STOOL SPECIMEN / Unknown Zohaib Burton MD POINT OF CARE TESTING Final Res [facility] from Last 3 Months or Most Recently Relevant to Health Maintenance Insurance [facility] [id number] Care Teams Boatbuilder Supervisor Relationship Specialty Start Date End Date César Bauman MD [facility] [facility] [place] [phone] PCP - General Family Practice 12/16/22
[2024-11-24 19:53] LABS: Anion Gap 8 mmol/L (4-12); Blood Urea Nitrogen 16 mg/dL (9-20); Calcium 10.1 mg/dL (8.4-10.2); Carbon Dioxide 31 mmol/L (22-30); Chloride 100 mmol/L (98-107); Estimated Glomerular Filt Rate > 60; Glucose 254 mg/dL (65-110); Potassium 4.7 mmol/L (3.4-5.0); Sodium 139 mmol/L (137-145)
[2024-11-24 20:13] LABS: Add Urine Microscopic? YES; Appearance Urine Clear (Clear); Bacteria Urine None Seen /hpf; Bilirubin Urine Negative (Negative); Blood Urine 1+ (Negative); Color Urine Yellow (Yellow); Glucose Urine UA 2+ mg/dL (Negative); Ketones Urine Negative (Negative); Leukocyte Esterase Ur 2+ LEU/UL (Negative); Need Manual Microscopic Reviewed; Nitrate Urine Negative (Negative); Non Pathogenic Casts 0-2; Protein Urine Negative (Negative); RBC Urine 0-2 /hpf (0-2); Specific Grav Ur 1.006 (1.001-1.035); Squamous Epithelial Cell Urine None Seen /hpf (Few); Urobilinogen Urine 0.2 mg/dL (<2.0); pH Urine 6.5 (5.0-9.0)
[2024-11-24 20:14] LABS: Microalbumin Urine Random 27.7 mg/L (0-16.7)
[2024-11-24 20:18] LABS: Creatinine Urine 26.1 mg/dL; MALB Creatinine Ratio 106.1 mg/g (0-30)
== END 2024-11-24 09:45 | disposition home or self-care (01) ==
LOC: ANHGOSHLAB 09:45
PROVIDERS: PCP Clinical Nurse Specialist; Visit Provider Clinical Nurse Specialist
DX: N20.0 Calculus of kidney (principal); E11.9 Type 2 diabetes mellitus without complications; R82.90 Unspecified abnormal findings in urine
CPT/HCPCS: 36415; 80048; 81001; 82043; 83036; 87086

== ENCOUNTER 2024-11-24 09:57 | Outpatient (CLI) | payer MEDICARE, SELFPAY ==
--- NOTE | ~2024-11-24 | XR_ITS ---
XR abdomen/kub 1V Ordering provider: KENY Viera History: . N20.0 - Calculus of kidney . Comparison: None. FINDINGS: BOWEL: Nonobstructive bowel gas pattern. ORGANOMEGALY: None. SIGNIFICANT PATHOLOGIC CALCIFICATIONS: Multiple left kidney stones. Tiny stones seen in the left side of the pelvis may be a ureteric stone. Clinical correlation advised. OTHER: No free air is seen under the diaphragm. IMPRESSION: NO ACUTE ABDOMINAL FINDINGS. Multiple left kidney stones. Possible tiny stone in the left side of the pelvis. Clinical correlation advised Reviewed, dictated and finalized at location A. IMPRESSION: NO ACUTE ABDOMINAL FINDINGS. Multiple left kidney stones. Possible tiny stone in the left side of the pelvis . Clinical correlation advised
== END 2024-11-24 09:58 | disposition home or self-care (01) ==
LOC: GOSHIMG 09:58
PROVIDERS: PCP Clinical Nurse Specialist; Visit Provider Clinical Nurse Specialist
DX: N20.0 Calculus of kidney (principal)
CPT/HCPCS: 74018

== ENCOUNTER 2024-12-02 13:32 | Outpatient (CLI) | payer MEDICARE, SELFPAY ==
--- NOTE | ~2024-12-02 | CT_ITS ---
CLINICAL INDICATION: Dorsalgia COMPARISON: 04/18/2022. TECHNIQUE: Multiple contiguous axial images of the abdomen and pelvis were performed following the ad ministration of with 100 mL Omnipaque-350 intravenous contrast The dose-length product (DLP) was 360.72 mGy-cm. Automated exposure control and iterative reconstruction technique were employed. FINDINGS/OBSERVATIONS: Visualized lower thorax: The bilateral lung bases are clear. The heart is of normal size, without pericardial effusion. Small hiatal hernia is present. Liver: The liver demonstrates homogeneous enhancement and is not enlarged. Gallbladder and biliary system: The gallbladder is surgically absent Pancreas: The pancreas enhances homogeneously without ductal dilatation. Spleen: The spleen enhances homogeneously and remains enlarged measuring 15 cm in longitudinal dimension, unc hanged from 04/24/2022. Kidneys: Redemonstration of multiple cysts within the left kidney, the largest measuring 3.6 cm in gr eatest dimension. Multiple bulky calcifications are again identified within the upper pole of the lef t kidney. Redemonstration of left-sided hydroureteronephrosis, unchanged in morphology from previous examinatio n. The remainder of the bilateral kidneys otherwise enhance symmetrically. The right kidney is without hydronephrosis or renal calculi. Adrenal glands: Unremarkable. Gastrointestinal tract: Fecal stasis within the colon. Appendix: The air-filled appendix is of normal caliber (axial series, images 126 through 140) Vasculature: Unremarkable. Lymph nodes: No pathologically enlarged or morphologically suspicious lymph nodes within the retroperitoneum or at the root of the mesentery. Pelvic structures: The bladder is only minimally distended, and otherwise unremarkable. The prostate gland is borderline enlarged. Body wall and musculoskeletal: Trace degenerative disease within the lower thoracic and lumbosacral spines with osteophyte formation , disc space narrowing and endplate changes. IMPRESSION: Redemonstration of splenomegaly. Redemonstration of bulky nonobstructing left renal calculi with multiple left renal cysts. Trace degenerative disease within the lower thoracic and lumbosacral spines, as detailed above Reviewed, dictated and finalized at location A. IMPRESSION: Redemonstration of splenomegaly. Redemonstration of bulky nonobstructing left renal calculi with multiple left r enal cysts. Trace degenerative disease within the lower thoracic and lumbosacral spines, as detailed above
== END 2024-12-02 13:33 | disposition home or self-care (01) ==
PROVIDERS: PCP Clinical Nurse Specialist; Visit Provider Clinical Nurse Specialist
DX: N20.0 Calculus of kidney (principal)
CPT/HCPCS: 74177; Q9967

== ENCOUNTER 2025-01-02 08:16 | Outpatient (CLI) | payer MEDICARE, SELFPAY ==
--- OUTSIDE RECORDS SUMMARY | 2025-01-02 08:20 | XMS_ITS | Clinical Summary ---
Author Organization [facility] Address [address] [place] [address] Care Team Providers Care Professional Nurse Name Role Phone César Bauman MD Primary Care Provider [phone] Allergies No known active allergies Medications metFORMIN [...] Encounters Date Type Department Care Team Description 12/21/2024 External Device Data [facility] Provider, Abstract 12/20/2024 External Device Data [facility] Provider, Abstract 12/06/2024 External Device Data [facility] Provider, Abstract 11/08/2024 External Device Data [facility]STRACTION Provider, [...] Description 01/02/2025 2:15 PM CDT Office Visit [facility] Oncology and Hematology - [place] [address] [facility] [address] [place] [address] Zohaib Burton MD [address] [facility] [address] [place] [address] Health Maintenance Due Date Last [...] 03/25/2019 FIT/FOBT Q 1 year 03/25/2019 03/25/2018 [place] Prev entative Visit/Annual Wellness Visit 06/08/2024 INFLUENZA VACCINE (#1) 2025 RSV VACCINE (60+ or ) (1 - [...] Most Recently Relevant to Health Maintenance Insurance [facility] [id number] Care Teams Professional Nurse Relationship Specialty Start Date End Date César Bauman MD [address] [place] [address] PCP - General Family Practice 12/16/22
[2025-01-02 08:39] LABS: Hematocrit 37.4 % (42.0-52.0); Hemoglobin 13.5 g/dL (14.0-18.0); Immature Granulocyte Percent A 0.2 % (0-0.5); Lymphocytes Absolute Auto 0.85 K/mm3 (0.9-3.2); Mean Corpuscular HGB Conc 36.1 g/dl (32-36); Mean Corpuscular Hemoglobin 33.2 pg (26-34); Mean Corpuscular Volume 91.9 fl (80-100); Nucleated Red Blood Cells Absolute Auto 0.000 K/mm3 (0.0-0.012); Nucleated Red Blood Cells Perc 0.0 % (0.0-0.2); Platelet Count Result 115 k/mm3 (150-375); Red Blood Count 4.07 M/mm3 (4.6-6.20); White Blood Count 4.7 K/mm3 (4.5-10.0)
[2025-01-02 08:48] LABS: Blood Urea Nitrogen 17 mg/dL (8-26); Carbon Dioxide 25 mmol/L (22-30); Chloride 101 mmol/L (98-109); Estimated Glomerular Filt Rate > 60; Glucose 163 mg/dL (70-105); Ionized Calcium (POC) 1.22 mmol/L (1.11-1.31); Potassium 4.3 mmol/L (3.5-4.9); Sodium 140 mmol/L (138-146)
[2025-01-02 09:29] LABS: Alanine Aminotransferase 32 U/L (6-50); Albumin Level 4.6 g/dL (3.5-5.1); Alkaline Phosphatase 63 U/L (38-126); Anion Gap 9 mmol/L (4-12); Aspartate Amino Transferase 29 U/L (17-59); Bilirubin,Total 1.1 mg/dL (0.2-1.3); Blood Urea Nitrogen 17 mg/dL (9-20); Calcium 9.4 mg/dL (8.4-10.2); Carbon Dioxide 27 mmol/L (22-30); Chloride 103 mmol/L (98-107); Estimated Glomerular Filt Rate > 60; Glucose 162 mg/dL (65-110); Potassium 4.3 mmol/L (3.4-5.0); Sodium 139 mmol/L (137-145); Total Protein 7.3 g/dL (6.3-8.2)
== END 2025-01-02 08:17 | disposition home or self-care (01) ==
PROVIDERS: PCP Clinical Nurse Specialist; Visit Provider Internal Medicine Hematology & Oncology
DX: R16.1 Splenomegaly, not elsewhere classified (principal)
CPT/HCPCS: 36415; 80047; 80053; 83615; 85025